=== PATIENT | male | born 1970 | race Caucasian/White ===

== ENCOUNTER → 2019-03-21 | Outpatient (REF) | payer OTHER | LOC: M SFHCLERA 10:28 | PROVIDERS: ATTEND Physician Assistant | DX: J02.9 Acute pharyngitis, unspecified (principal) ==

== ENCOUNTER → 2023-04-02 | Outpatient (CLI) | payer OTHER | LOC: M PLAIMG 14:15 | PROVIDERS: ATTEND Physician Assistant Medical | DX: M25.562 Pain in left knee (principal); M25.462 Effusion, left knee ==